=== PATIENT | male | born 1950 | race Caucasian/White ===

== ENCOUNTER 2018-10-04 16:42 | Inpatient (IN) ==
[2018-10-04] MEDS ORDERED: Sodium Chloride 0.9% 1,000 ML PRIMARY IV ONE ×2 (17:00→21:32)
[2018-10-04 17:09] LABS: BLOOD UREA NITROGEN 16 mg/dL (7-22); LIPASE 62 IU/L (23-300); SERUM ALBUMIN 4.2 g/dL (3.5-4.8)
[2018-10-04 17:10] LABS: BASOPHILS # (AUTO) 0.04 10*3/UL; BASOPHILS % (AUTO) 0.3 % (0-1); EOSINOPHILS # (AUTO) 0.04 10*3/UL; EOSINOPHILS % (AUTO) 0.3 % (0-8); Hematocrit [HCT] 43.3 % (42.0-52.0); Hemoglobin [HGB] 15.1 g/dL (14.0-18.0); MEAN CORPUSCULAR HEMOGLOBIN 31.9 PG (27-31); MEAN CORPUSCULAR HGB CONC 34.9 g/dL (33-37); MEAN CORPUSCULAR VOLUME 91.4 FL (80-90); MEAN PLATELET VOLUME 9.3 FL (7.4-12.2); MONOCYTES # (AUTO) 0.72 10*3/UL (0.3-0.8); MONOCYTES % (AUTO) 4.7 % (5-15); NEUTROPHILS # (AUTO) 13.13 10*3/UL; NEUTROPHILS % (AUTO) 85.9 % (50-80); PLATELET MORPHOLOGY COMMENT NORMAL MORPHOLOGY (NORM); RBC MORPHOLOGY COMMENT NORMAL MORPHOLOGY (NORM); RED BLOOD COUNT 4.74 10^6/uL (4.70-6.10); WBC MORPHOLOGY COMMENT NORMAL MORPHOLOGY (NORM)
[2018-10-04] MEDS ORDERED: Ondansetron ODT Tab 4 MG TAB PO PRN ×2 (18:48→21:32)
[2018-10-04] MEDS ORDERED: LIDOCAINE W/ SODIUM BICARB 0.5 ML SYR SUBD PRN (18:48)
[2018-10-04] MEDS ORDERED: KETOROLAC 15 MG/1 ML VIAL IVP PRN ×2 (18:48→21:32)
[2018-10-04] MEDS ORDERED: DOCUSATE 100 MG CAPSULE PO PRN ×2 (18:48→21:32)
[2018-10-04] MEDS ORDERED: CALCIUM CARBONATE 500 MG (TUMS) CHEWABLE TABLET PO PRN ×2 (18:48→21:32)
--- NOTE | 2018-10-04 18:58 | DI ---
AP CHEST X-RAY, 10/04/2018 5:01 PM : Clinical History: Trauma. Previous Exam: None at this facility. Soft Tissues: Subcutaneous emphysema on the left side of the neck and the left lower thorax. Bones: Left lateral rib fractures involving the sixth and seventh ribs and possibly the fifth rib. Heart: Heart Size: Normal heart size. Vascular Pedicle Width: Cannot adequately assess due to rotatio n. Azygous Vein: Not visualized Vascular Flow Pattern:Normal. Pulmonary Arteries: Normal. Lungs: There is a patchy density in the left midlung field and behind the left heart consistent with pulmonary contusions. No definite pneumothorax is seen but with the rib fractures in the subcutaneous emphysema, a pneumothorax must be present. Effusion(s): None. Mediastinum: Normal mediastinum. Nodules: No pulmonary nodules. Readin. Subcutaneous emphysema on the left side of the neck and lower chest with left sixth and seventh r ib fractures and possibly also the fifth rib. Although no pneumothorax is visualized, with the rib fr actures and subcutaneous emphysema, a small pneumothorax must be present. 2. Pulmonary contusions are present in the left midlung field probably in the lingula, and in the le ft lower lobe.
[2018-10-04] MEDS ORDERED: Lactated Ringers 1,000 ML PRIMARY IV SCH (19:00)
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
[2018-10-04] MEDS ORDERED: PROPOFOL 10 MG/1 ML (200 MG/20 ML) VIAL IV ONE (19:11)
[2018-10-04 19:22] LABS: URINE SAMPLE TYPE CLEAN CATCH URINE; URINE SPECIFIC GRAVITY - MAN 1.035
[2018-10-04] MEDS ORDERED: LIDOCAINE 2% 20 MG/ML - 20 ML VIAL ONE (19:24)
[2018-10-04 19:29] LABS: AMPHETAMINE SCREEN NEGATIVE (NEG); CANNABINOID SCREEN,URINE POSITIVE (NEG); COCAINE SCREEN NEGATIVE (NEG); METHADONE URINE SCREEN NEGATIVE (NEG); METHAMPHETAMINES SCREEN,URINE NEGATIVE (NEG); OPIATE SCREEN,URINE NEGATIVE (NEG)
--- NOTE | 2018-10-04 19:40 | CRNA.PROGR ---
Anesthesia Time - Procedure/Recovery Time Start Date: 10/04/18 End Date: 10/04/18 Anesthesia : Time In: 19:20 Anesthesia : Time Out: 19:35 Anesthesia : Total Time: 15 - Total Anesthesia Time Total Anesthesia Time (minutes): 15 - Other Physical Status: P2 Anesthesia Type: MAC (sedation)
--- NOTE | 2018-10-04 19:45 | CRNA.PROGR ---
Anesthesia Note - Progress Notes Anesthesia Progress Note: Sedation for Chest tube placement Received phone call from Dr. Koehler to provide sedation for left sided chest tube placement. Patient is lying in gurney, monitors on and O2 at 4lpm nc. Consent was obtained, patient was sedated with propofol only. A total of 150mg was titrated in over 5 min. Patient was awake alert and oriented when i turned care back over to the RN. VS stable.
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
--- NOTE | 2018-10-04 20:53 | DI ---
AP CHEST X-RAY, 10/04/2018 6:50 PM : Clinical History: Left pneumothorax. Status post chest tube placement. Previous Exam: None at this facility. Soft Tissues: [place]z subcutaneous emphysema is present at the site of the chest tube. Bones: Left-sided rib fractures are difficult to visualize with the presence of the subcutaneous emph ysema. Heart: Heart Size: Normal heart size. Vascular Pedicle Width: Normal. Azygous Vein: Normal size. Vasc ular Flow Pattern:Normal. Pulmonary Arteries: Normal. Lungs: There is left lower lobe atelectasis versus a pulmonary contusion. Effusion(s): None. Mediastinum: No shift of the mediastinum is present. Nodules: No pulmonary nodules. Reading: The left chest tube tip is directed superiorly. No definite pneumothorax is seen. Left lower lobe ate lectasis versus pulmonary contusion.
[2018-10-04] MEDS ORDERED: FAMOTIDINE 20 MG TABLET PO SCH (21:00)
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
[2018-10-04] MEDS ORDERED: AMITRIPTYLINE 25 MG TABLET PO SCH (22:30)
[2018-10-04] MEDS ORDERED: LIDOCAINE 2% 20 MG/ML - 20 ML VIAL SUBCUT ONE (22:49)
[2018-10-04] MEDS: ALPRAZolam Tab 0.25 MG TABLET PO SCH (23:42)
[2018-10-04] MEDS: Lactated Ringers 1,000 ML PRIMARY IV SCH (23:51)
[2018-10-05] MEDS: ACETAMINOPHEN 325 MG TABLET PO PRN ×3 (00:59→16:13)
[2018-10-05] MEDS: ZOLPIDEM 10 MG TABLET PO PRN ×2 (01:10→22:20)
[2018-10-05] MEDS: FAMOTIDINE 20 MG TABLET PO SCH ×2 (09:04→21:55)
--- NOTE | 2018-10-05 09:57 | GEN.OPNOTE ---
Operative Note Surgery Date: 10/04/18 Preoperative Diagnosis: Left pneumothorax Postoperative Diagnosis: Left pneumothorax Procedure: chest tube Surgeon: Marcio Koehler MD Anesthesia Provider: Pastor Wood CRNA Anesthesia Type: Local, MAC Estimated Blood Loss (mL): 2 Fluids: see anesthia note Operative Summary: pt given proprofol for sedation . time out performed.pt prepped and draped. 10 ml of 1% lidocaine used for local anesthia. small incision made. blunt dissection through the subcutaneous tissue . the 4th intercostal space entered. 24 vietnamese chest tube placed. tube secured. sterile dressing placed. post procedure x-ray should lung re-expaned. Patient Problems - Patient Problem List (1) Pneumothorax, left Current Visit: Yes Status: Acute Code(s): J93.9 - Pneumothorax, unspecified Category: Medical (2) Multiple fractures of left lower extremity, ribs, and sternum Current Visit: Yes Status: Acute Code(s): S82.92XA - Unspecified fracture of left lower leg, initial encounter for closed fracture; S22.20XA - Unspecified fracture of sternum, initial encounter for closed fracture; S22.49XA - Multiple fractures of ribs, unspecified side, initial encounter for closed fracture Category: Medical (3) Left rib fracture Current Visit: Yes Status: Acute Code(s): S22.32XA - Fracture of one rib, left side, initial encounter for closed fracture Qualifiers: Encounter type: initial encounter Category: Medical Procedure Codes - Catheterization/Mediport Procedures Primary Catheterization/Mediport Procedure: 38447 : Insertion, Chest Tube
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
[2018-10-05] MEDS: Lactated Ringers 1,000 ML PRIMARY IV SCH (13:11)
--- NOTE | 2018-10-05 13:59 | PDOC(PROG) ---
Date of Service: 10/05/18 Time of Service: 13:58 Interval History: Patient is doing okay is just sore. He is reluctant to go home today. Objective : Data - Labs CBC and BMP: 10/04/18 16:45 10/04/18 16:45 - Vital Signs Vital Signs and I&O: Vital Signs - Last Taken Temperature 97.3 F 10/05/18 11:15 Pulse Rate 68 10/05/18 13:08 Respiratory Rate 17 10/05/18 11:15 Blood Pressure 106/70 10/05/18 11:15 Pulse Ox 96 10/05/18 13:08 Intake and Output (24hr x 4 totals) 10/03/18 10/04/18 10/05/18 10/06/18 05:59 05:59 05:59 05:59 Intake Total 574 / 574 890 / 890 Output Total 756 / 756 675 / 675 Balance -182 / -182 215 / 215 Objective : Exam - General General Appearance: No Acute Distress, Cooperative - Respiratory Respiratory Exam: Clear to Auscultation - Bilaterally, Breathing Non Labored, Normal To Percussion Assessment and Plan - Patient Problems (1) Pneumothorax, left Current Visit: Yes Status: Acute Code(s): J93.9 - Pneumothorax, unspecified (2) Multiple fractures of left lower extremity, ribs, and sternum Current Visit: Yes Status: Acute Code(s): S82.92XA - Unspecified fracture of left lower leg, initial encounter for closed fracture; S22.20XA - Unspecified fracture of sternum, initial encounter for closed fracture; S22.49XA - Multiple fractures of ribs, unspecified side, initial encounter for closed fracture (3) Left rib fracture Current Visit: Yes Status: Acute Code(s): S22.32XA - Fracture of one rib, left side, initial encounter for closed fracture Qualifiers: Encounter type: initial encounter - Assessment / Plan Additional Assessment/Plan Details: Patient overall is doing very well. Chest x-ray showed no evidence of pneumothorax. He was pronounced serosanguineous fluid no evidence of blood. Also patient had no air leak. Chest tube was removed today. Postprocedure chest x-ray shows no pneumothorax. I still think the patient is a very fraction is being for IV Toradol for pain management.
--- NOTE | 2018-10-05 14:02 | DI ---
AP CHEST X-RAY, 10/05/2018 2:00 PM : Clinical History: Pneumothorax. Status post chest tube removal. Previous Exam: Earlier today at 1130 hours. Soft Tissues: Subcutaneous emphysema is unchanged. The chest tube has been removed. Bones: Normal. Heart: Heart Size: Normal heart size. Vascular Pedicle Width: Normal. Azygous Vein: Normal size. Vasc ular Flow Pattern:Normal. Pulmonary Arteries: Normal. Lungs: No residual pneumothorax identified. No change in the left retrocardiac atelectasis versus pul monary contusion. There is an infiltrate in the right lower lobe with air bronchograms. This may repr esent some atelectasis, but if the patient is febrile, than a developing pneumonia cannot be excluded . Effusion(s): None. Mediastinum: Normal mediastinum. Nodules: No pulmonary nodules. Readin. Status post removal of the left chest tube. No pneumothorax noted. 2. New right lower lobe infiltrate with air bronchograms. This probably represents atelectasis, but if the patient is febrile, than a right lower lobe pneumonia cannot be excluded. 3. No change in the left retrocardiac atelectasis versus pulmonary contusion.
--- NOTE | 2018-10-05 15:40 | EKG ---
[address] [address] Measurements Intervals [place] Rate: 108 P: 60 IA: 174 QRS: -11 QRSD: 95 T: 79 QT: 346 QTc: 409 Interpretive Statements INCOMPLETE ecg SINUS TACHYCARDIA POSSIBLE RIGHT VENTRICULAR CONDUCTION DELAY SEPTAL MYOCARDIAL INFARCTION PROBABLY OLD No previous ECG available for comparison Electronically Signed On 10-05-18 16:37:25 MDT by Holger Hanna [email or web address]
[2018-10-05] MEDS ORDERED: AMITRIPTYLINE 25 MG TABLET PO SCH (21:00)
[2018-10-05] MEDS: ALPRAZolam Tab 0.25 MG TABLET PO SCH (21:05)
[2018-10-06] MEDS: ACETAMINOPHEN 325 MG TABLET PO PRN ×2 (00:03→09:21)
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
[2018-10-06] MEDS: FAMOTIDINE 20 MG TABLET PO SCH (09:21)
[2018-10-06] MEDS ORDERED: KETOROLAC 15 MG/1 ML VIAL ONE (11:57)
[2018-10-06] MEDS: KETOROLAC 15 MG/1 ML VIAL IVP ONE ×2 (11:59→13:46)
[2018-10-06 13:08] VITALS: RESP 14; TEMP 98
[2018-10-06 13:12] VITALS: BP 98/60
[2018-10-06 15:11] VITALS: O2SAT 94
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
== END 2018-10-06 16:24 | disposition home or self-care (01) | DRG 200 ==
LOC: ER 16:42 → MED/SURG 18:48
PROVIDERS: ADMIT Surgery; ATTEND Surgery